=== PATIENT | female | born 1990 | race Caucasian/White ===

== ENCOUNTER 2016-06-04 23:53 | Emergency (ER) | payer BC ==
[~2016-06-04] VITALS: Ht 160 cm; Wt 81.7 kg
[~2016-06-04 23:53] MED LIST: ALBU8.5H2 IH; AZIT250T81 PO; DIPH25CA79 PO; DOXY100T41 PO; DOXY25TA; LISD20CA3; METH4TAB27 PO; PRCD5U PO; PRED20TA PO; SERT100T PO; [UNRECOGNIZED DRUG - CODE] PO
--- OUTSIDE RECORDS SUMMARY | 2016-06-04 23:57 | XMS REPORT | Continuity of Care Document ---
Author Author [facility] Organization [facility] Address Unknown Phone Unavailable Care Team Providers Care Depalletizer Operator Name Role Phone Eriberto Knox MD PP [phone] Insurance Providers Payer Name Policy Number Subscriber Name Relationship Inscription [facility] [id number] Arcelia James 16 Self / Same As Patient BMI [id number] Verónica James 17 Mother Advance Directives Directive Response Recorded Date Advanced Directives No 02/17/13 12:39pm Problems Medical Problem Onset Date Cough 02/17/13 Frontal headache 01/12/13 Allergies, Adverse Reactions, Alerts Allergen Type Severity Reaction Last Updated Sulfa (Sulfonamide Antibiotics) Allergy Hives 01/12/13 Cefaclor Allergy Hives 01/12/13 Medications Medication Dose Units Route Sig Qty Days Promethazine/Codeine (Phenergan W/Cod Syrup) 5 Ml PO Q6H 60 Doxycycline Hyclate 1 Tab PO BID 30 Doxylamine Succinate (Sleep Aid) Aspirin/Acetaminophen/Caffeine (Excedrin Extra Strength Tablet) 2 Tab PO PRN Diphenhydramine Hcl (Benadryl) 25 Mg PO PRN Lisdexamfetamine Dimesylate (Vyvanse) Sertraline Hcl (Zoloft) 100 Mg PO DAILY Response Recorded Date/Time Status not known Unknown Results No Known Relevant Diagnostic Tests, Laboratory Data and/or Discharge Summary. Procedures Procedure Code Date EMERGENCY DEPT VISIT 84918 01/12/13 THER/PROPH/DIAG INJ SC/IM 06811 01/12/13 A9270 01/12/13 J1200 01/12/13 J1885 01/12/13 Encounters Encounter Location Date/Time Departed Emergency Room [facility] 02/17/13 12:37pm
[2016-06-05] MEDS ORDERED: AMOX500C5 PO (00:26)
[2016-06-05] MEDS ORDERED: AMOXICILLIN 500 MG (AMOXIL) CAPSULE PO ONE (00:30)
[2016-06-05] MEDS ORDERED: HYDR-2651 PO (00:36)
[2016-06-05] MEDS ORDERED: TRAZ-28 PO (00:36)
[2016-06-05] MEDS ORDERED: LORA10TA76 PO (00:36)
[2016-06-05 00:45] VITALS: BP 126/85
== END 2016-06-05 00:41 | disposition home or self-care (01) ==
LOC: ED 23:56
DX: J02.9 Acute pharyngitis, unspecified (principal)
CPT/HCPCS: 99282; 99283

== ENCOUNTER → 2016-06-06 | Outpatient (CLI) | payer BC ==
[~2016-06-06] MED LIST changes: +AMOX500C5 PO; +HYDR-2651 PO; +LORA10TA76 PO; +TRAZ-28 PO
[2016-06-06 17:11] VITALS: BP 121/80
--- NOTE | 2016-06-06 17:11 | Urgent Care T Sheet Gen (E) ---
Intake General Temperature (Fahrenheit): 99.0 Pulse: 94 Blood Pressure Systolic: 121 Blood Pressure Diastolic: 80 Respirations: 18 SPO2: 96 Chief Complaint: UC Ear/Nose/Throat Complaint Description of Symptoms Comes in for sore throat- was seen in the ED Monday and upset because they didnt swab her and said it was viral but gave her Amoxicillin. no high fevers today temp was 99. No vomiting no rash, no other issues- wants checked for mono. Source: Patient History of Present Illness Onset & Duration: Days (4) Associated Symptoms: Nasal congestion, Sinus congestion Recent Trauma: No Allergies: Coded Allergies: Sulfa (Sulfonamide Antibiotics) (Verified Allergy, Unknown, Hives, 06/05/16 ) cefaclor (Verified Allergy, Unknown, Hives, 06/05/16) Home Meds Active Scripts Amoxicillin (Amoxil)500 Mg Ucsoqdc039 Mg PO 3 times a day Infection 5 Days Ref 0 Prov:ROBBIE ADAMS MD 06/05/16 Reported Medications Hydroxyzine HCl (Atarax)25 Mg Meggkn51 Mg PO UD PRN ANXIETY #90 06/05/16 Trazodone HCl 50 Mg Gbnbey03 Mg PO HS 06/05/16 Loratadine (Claritin)10 Mg Famnxr28 Mg PO DAILY 06/05/16 Discontinued Reported Medications Doxylamine Succinate (Sleep Aid)25 Mg Tablet 01/12/13 Aspirin/Acetaminophen/Caffeine (Excedrin Extra Strength Tablet)1 Each Tablet2 Tab PO PRN 01/12/13 Diphenhydramine HCl (Benadryl)25 Mg Xhemvpp10 Mg PO PRN 01/12/13 Lisdexamfetamine Dimesylate (Vyvanse)20 Mg Capsule 01/12/13 Sertraline HCl (Zoloft)100 Mg Zmlclj987 Mg PO DAILY 01/12/13 Discontinued Scripts Methylprednisolone (Medrol Dosepack)21 Tab/Pkt Tablet6 Tab PO DAILY Inflammation #1 PKT Ref 0 Take 6 tabs po on day 1 then decrease by 1 tab daily until gone. Prov:JADIEL RICH 08/24/15 Albuterol Sulfate (Proair HFA)8.5 Gm Hfa.aer.ad2 Puff IH QID PRN SHORTNESS OF BREATH #1 INHALER Prov:JADIEL RICH 4/25/16 Prednisone 20 Mg Tchmam88 Mg PO BID #6 TAB Prov:JADIEL RICH KEVIN 06/08/15 Azithromycin (Zithromax Z-Jimmy)6 Tab/Pkt Nuvufo528 Mg PO SEE INSTRUCTIONS #6 TAB Ref 0 Day One: Take 2 tablets by mouth Days Two-Five: Take 1 tablet by mouth Prov:JADIEL RICH KEVIN 06/08/15 Promethazine/Codeine (Phenergan w/Codeine 6.25mg-10mg/5ml)5 Ml Syrp5 Ml PO Q6H # 60 Prov:ABIODUNRENETTA A DO 02/17/13 Doxycycline Hyclate (Vibramycin)100 Mg Tablet1 Tab PO BID #30 Prov:ABIODUNRENETTA A DO 02/17/13 Respiratory Constitutional Symptoms: Fever EENTM: Throat pain Respiratory: No symptoms reported Cardiovascular: No symptoms reported Gastrointestinal/Abdominal: No symptoms reported Genitourinary: No symptoms reported All Other Systems Reviewed Remaining Systems: All other systems reviewed with negative findings Past Tjoyioa-Atefzq-Llksms Hx Patient's Social History Alcohol Use: Denies Use Recreational Drug Use: Denies Use Smoking Status: Current every day smoker Surgeries/Hospitalizations Hospitalization/Surgery Hx: SPORTS INDUCED ASTHMA, T & A, KNEE LT SURG, WIDSOM TEETH, DEPRESSION Respiratory Respiratory History: Asthma Comment: SPORT INDUCED ASTHMA Cardiovascular Cardiovascular History: None Reproductive System Sexually Transmitted Diseases: No Gastrointestinal GI/Endocrine History: None Diabetes Diabetes: No HEENT Impaired Vision: Glasses Hearing Impaired: None Psychosocial Behavior Disorders: Depression Physical Exam Physical Exam General Appearance: WD/WN No apparent distress Eyes, Ears, Nose, Throat Ex: PERRL/EOMI Normal ENT inspection TMs normal Pharyngeal erythema (mild but petechiae on palate) Neck Exam: Full range of motion Supple Normal inspectionNo Lymphadenopathy Respiratory Exam: Lungs clear Normal breath sounds No respiratory distress No accessory muscles used Cardiovascular Exam: Regular rate, rhythm No murmur GI/ Exam: Non tender No organomegaly Normal bowel sounds Skin Exam: Normal color Warm/dry/intact No rashes Neurologic/Psychiatric Exam: Oriented times 4 CN's II-X nml Progress/Orders Lab Results Labs Results: Perkins (negative), Rapid Strep (negative) Departure Urgent Care Impression Chief Complaint: UC Ear/Nose/Throat Complaint Impression: Primary Impression: Pharyngitis Departure Disposition: 01 HOME OR SELF-CARE Condition: Stable Referrals: Eriberto Knox MD (PCP) Additional Instructions: Long talk with her tylenol for pain or fever rest hydrate Doubt Amox will change anything but she wishes to finish it F/U PCP as needed she agrees to plan of care reassurred today End of report . ROMANA FAULKNER APRN () Jun 06, 2016 17:11
== END ==
LOC: MHUC 16:22
PROVIDERS: ATTEND Nurse Practitioner
DX: J02.9 Acute pharyngitis, unspecified (principal)
CPT/HCPCS: 86403; 87880; 99213